=== PATIENT | female | born 1980 | race American Indian/Alaskan Native ===

== ENCOUNTER 2017-07-01 18:11 | Emergency (ER) | payer SELFPAY ==
[2017-07-01 19:37] LABS: BASO # 0.1 K/uL (0.0-0.2); EOS # 0.1 K/uL (0.0-0.7); EOS % 1.7 % (0.0-4.0); HEMOGLOBIN 12.8 g/dL (11.0-16.0); LYMPH # 3.6 K/uL (1.0-4.3); LYMPH % 42.1 % (20.0-40.0); MEAN CELL VOLUME 88.6 fL (81.0-99.0); MEAN CORPUSCULAR HEMOGLOBIN 30.2 pg (27.0-31.0); MEAN CORPUSCULAR HGB CONC 34.1 g/dL (33.0-37.0); MEAN PLATELET VOLUME 7.9 fL (7.2-11.7); MONO # 0.5 K/uL (0.0-0.8); MONO % 6.1 % (0.0-10.0); NEUT # 4.2 K/uL (1.8-7.0); NEUT % 49.1 % (50.0-75.0); RBC 4.22 Mil/uL (3.80-5.20); WHITE BLOOD COUNT 8.6 K/uL (4.8-10.8)
[2017-07-01 19:39] LABS: SQUAMOUS EPITHIAL < 1 /hpf (0-5); URINE BILIRUBIN NEGATIVE (NEGATIVE); URINE BLOOD NEGATIVE (NEGATIVE); URINE CLARITY Clear (Clear); URINE COLOR Colorless (YELLOW); URINE GLUCOSE (UA) NORMAL (Normal); URINE LEUKOCYTE ESTERASE NEG Leu/uL (Negative); URINE PROTEIN NEGATIVE (NEGATIVE); URINE UROBILINOGEN NORMAL mg/dL (0.2-1.0)
--- NOTE | 2017-07-01 19:44 | C.PDOC ---
History Of Present Illness 37 year old female presents to the ER with a complaint of pain and swelling to the left lower extremity for the past 3 months. Patient has a Hx of chronic left femoral vein thrombosis. Denies chest pain or SOB. Chief Complaint (Nursing): Lower Extremity Problem/Injury History Per: Patient History/Exam Limitations: no limitations Onset/Duration Of Symptoms: Days Current Symptoms Are (Timing): Still Present Recent travel outside of the [place]: No Past Medical History Reviewed: Historical Data, Nursing Documentation, Vital Signs Vital Signs: Last Vital Signs Temp 98.4 F 07/01/17 20:03 Pulse 88 07/01/17 20:03 Resp 20 07/01/17 20:03 BP 123/88 07/01/17 20:03 Pulse Ox 97 07/01/17 20:03 - Medical History PMH: Deep Vein Thrombosis (Left) Family History: States: Unknown Family Hx - Social History Hx Alcohol Use: Yes Hx Substance Use: No - Immunization History Hx Tetanus Toxoid Vaccination: No Hx Influenza Vaccination: Yes (04/2017) Hx Pneumococcal Vaccination: No Review Of Systems Constitutional: Negative for: Fever, Chills Cardiovascular: Negative for: Chest Pain Respiratory: Negative for: Shortness of Breath Musculoskeletal: Positive for: Leg Pain (w/ swelling) Skin: Negative for: Rash, Lesions, Bruising Neurological: Negative for: Weakness, Numbness Physical Exam - Physical Exam Appears: Non-toxic, No Acute Distress Skin: Normal Color, Warm, Dry Head: Atraumatic, Normacephalic Eye(s): bilateral: Normal Inspection Oral Mucosa: Moist Neck: Normal, Supple Chest: Symmetrical, No Tenderness Cardiovascular: Rhythm Regular Respiratory: Normal Breath Sounds, No Rales, No Rhonchi, No Wheezing Gastrointestinal/Abdominal: Soft, No Tenderness Extremity: Normal ROM (x4), No Tenderness, No Calf Tenderness, No Deformity, Swelling (Left lower extremity) Pulses: Left Dorsalis Pedis: Normal, Right Dorsalis Pedis: Normal Neurological/Psych: Oriented x3, Normal Speech, Normal Motor, Normal Sensation Gait: Steady ED Course And Treatment - Laboratory Results Result Diagrams: 07/01/17 19:34 07/01/17 19:34 O2 Sat by Pulse Oximetry: 96 (Room air) Pulse Ox Interpretation: Normal Progress Note: Blood work, CXR, and urinalysis ordered. Disposition Counseled Patient/Family Regarding: Diagnosis - Disposition Referrals: [facility] [Outside] Disposition: HOME/ ROUTINE Disposition Time: 23:29 Condition: STABLE Additional Instructions: TO RETURN IN THE MORNING FOR VASCULAR ULTRASOUND OF rIGHT LOWER EXTREMITY Forms: [facility] (Uzbek) - POA Present On Arrival: None - Clinical Impression Clinical Impression: Right leg DVT - Scribe Statement The provider has reviewed the documentation as recorded by the Scribe Km Huizar All medical record entries made by the Scribe were at my direction and personally dictated by me. I have reviewed the chart and agree that the record accurately reflects my personal performance of the history, physical exam, medical decision making, and the department course for this patient. I have also personally directed, reviewed, and agree with the discharge instructions and disposition.
[2017-07-01 19:45] LABS: PROTHROMBIN TIME 11.6 SECONDS (9.7-12.2)
[2017-07-01] MEDS ORDERED: Naproxen 550 mg Tab PO ONE (19:55)
[2017-07-01 20:05] LABS: ALB/GLOB RATIO 0.8 (1.0-2.1); ALBUMIN 4.2 g/dL (3.5-5.0); ALT/SGPT 18 U/L (9-52); AST/SGOT 20 U/L (14-36); BLOOD UREA NITROGEN 10 mg/dL (7-17); CALCIUM 9.5 mg/dl (8.6-10.4); GFR AFRICAN-AMERICAN > 60; GFR NON-AFRICAN AMERICAN > 60
[2017-07-01] MEDS ORDERED: Naproxen 550 mg Tab PO STA (20:15)
[2017-07-01] MEDS ORDERED: Iodixanol 320 mg/ml 150 ml Bottle IV ONE (20:52)
[2017-07-01] MEDS ORDERED: Enoxaparin 80 mg Syringe SC STA (23:27)
[2017-07-01] MEDS ORDERED: Enoxaparin 80 mg Syringe ONE (23:33)
[2017-07-01 23:43] VITALS: BP 119/80; PULSE 67; RESP 18; TEMP 97.6; O2SAT 98
--- NOTE | 2017-07-02 08:08 | RAD ---
HISTORY: COMPARISON: 07/01/2017. TECHNIQUE: Chest PA and lateral FINDINGS: LINES AND TUBES: None. LUNG AND PLEURA: The lungs are well inflated and clear. HEART AND MEDIASTINUM: The heart is not enlarged. The hilar and mediastinal contours are within normal limits. SKELETAL STRUCTURES: The bony structures are within normal limits for the patient's age. VISUALIZED UPPER ABDOMEN: Normal. OTHER FINDINGS: None. IMPRESSION: No active pulmonary disease.
--- NOTE | 2017-07-02 09:36 | CT ---
PROCEDURE: CT Chest with contrast (Pulmonary Angiogram) HISTORY: elevatrf D-dimer COMPARISON: Plain radiographs performed earlier the same day TECHNIQUE: Axial computed tomography images were obtained of the chest in the pulmonary arterial phase of enhancement. Coronal and sagittal reformatted images were created and reviewed. Intravenous contrast dose: 100 mL Visipaque Radiation dose: Total exam DLP = 490.56 mGy-cm. This CT exam was performed using one or more of the following dose reduction techniques: Automated exposure control, adjustment of the mA and/or kV according to patient size, and/or use of iterative reconstruction technique. FINDINGS: PULMONARY ARTERIES: There are no filling defects in the pulmonary arteries to suggest acute pulmonary embolism. AORTA: No acute findings. No thoracic aortic aneurysm. LUNGS: There is patchy ground-glass attenuation in the lungs. No focal consolidation. PLEURAL SPACES: No effusion or pneumothorax. HEART: No cardiomegaly. No significant pericardial effusion. LYMPH NODES: No pathologic lymphadenopathy. BONES, CHEST WALL: Within normal limits for the patient's age. No fracture or destructive lesion. OTHER FINDINGS: Unremarkable. IMPRESSION: 1. No evidence for acute pulmonary embolism. 2. Patchy ground-glass attenuation in the lungs could be related to nonspecific infection/inflammation or hypo inflation. A preliminary report was provided by [employer].
== END 2017-07-01 23:48 | disposition home or self-care (01) ==
LOC: C.ER 18:11
DX: I82.401 Acute embolism and thrombosis of unspecified deep veins of right lower extremity (principal)
CPT/HCPCS: 71046; 71275; 80053; 81001; 84703; 85025; 85378; 85610; 85730; 96372; 99285; J1650; Q9967